=== PATIENT | female | born 1940 | race Caucasian/White ===

== ENCOUNTER 2022-05-19 10:36 | Emergency (ER) | payer MEDICARE, BC ==
[~2022-05-19] VITALS: Ht 167.6 cm; Wt 57.0 kg
[2022-05-19 10:57] LABS: BASOPHILS # (AUTO) 0.1 X10'3 (0-0.2); BASOPHILS % (AUTO) 1.3 % (0-1); EOSINOPHILS % (AUTO) 0.7 % (0-6); HEMATOCRIT 41.3 % (35.0-45.0); HEMOGLOBIN 13.8 g/dl (12.0-16.0); LYMPHOCYTES # (AUTO) 0.6 X10'3 (1.1-4.8); LYMPHOCYTES % (AUTO) 13.6 % (21-51); MEAN CORPUSCULAR HEMOGLOBIN 31.6 PG (27.0-31.0); MEAN CORPUSCULAR HGB CONC 33.3 g/dL (33.0-36.5); MEAN CORPUSCULAR VOLUME 94.8 FL (78-98); MEAN PLATELET VOLUME 8.5 FL (7.4-10.4); MONOCYTES # (AUTO) 0.5 X10'3 (0-0.9); MONOCYTES % (AUTO) 10.6 % (2-12); NEUTROPHILS # (AUTO) 3.4 X10'3 (1.8-7.7); NEUTROPHILS % (AUTO) 73.8 % (42-75); PLATELET COUNT 314 X10'3 (140-440); RED BLOOD COUNT 4.36 X10'6 (4.20-5.60); RED CELL DISTRIBUTION WIDTH 13.3 % (11.5-14.5); WHITE BLOOD COUNT 4.5 X10'3 (4.5-11.0)
[2022-05-19 11:16] LABS: ALANINE AMINOTRANSFERASE 17 U/L (12-78); ALBUMIN/GLOBULIN RATIO 1.3 (1.1-1.5); ALKALINE PHOSPHATASE 58 IU/L (46-116); ANION GAP 8 (8-16); ASPARTATE AMINO TRANSFERASE 14 U/L (10-37); BILIRUBIN,TOTAL 1.7 MG/DL (0.1-1.0); BLOOD UREA NITROGEN 13 MG/DL (7-18); BUN/CREATININE RATIO 18.6 (10.0-20.0); CALCIUM 9.4 MG/DL (8.5-10.1); CHLORIDE 104 MMOL/L (99-107); GLUCOSE 116 MG/DL (70-104); MAGNESIUM 2.2 MG/DL (1.5-2.4); POTASSIUM 4.3 MMOL/L (3.5-5.1); SODIUM 138 MMOL/L (135-145); TOTAL CARBON DIOXIDE 26.2 MMOL/L (24-32); TOTAL PROTEIN 7.1 G/DL (6.4-8.2); eGFR 81 ML/MIN
[2022-05-19 11:56] VITALS: BP 143/77
--- NOTE | 2022-05-19 14:13 | NUR ---
At 1400, Pt was to be triaged after returning w/ [facility] from elopement, however, pt began to start kicking and screaming once the cuff started pumping up. At 1405, Ativan 2mg IM given in R glut. Per provider request, Haldol and Nardal held at this time. At 1410, MYLES Childress assessed pt face to face, and determined restraints were necessary. Pt continuing to scream, but not kicking at this time.
== END 2022-05-19 14:13 | disposition home or self-care (01) ==
LOC: ER 10:36
DX: R55 Syncope and collapse (principal)
CPT/HCPCS: 36415; 71045; 80053; 83735; 83880; 84484; 85025; 93005; 99285

== ENCOUNTER 2022-09-14 09:01 | Inpatient (IN) | payer BC, MEDICARE ==
[~2022-09-14] VITALS: Ht 167.6 cm; Wt 56.8 kg
[2022-09-14 09:48] LABS: BASOPHILS % (AUTO) 0.6 % (0-1); EOSINOPHILS # (AUTO) 0.1 X10'3 (0-0.9); EOSINOPHILS % (AUTO) 2.3 % (0-6); HEMATOCRIT 42.5 % (35.0-45.0); HEMOGLOBIN 14.4 g/dl (12.0-16.0); LYMPHOCYTES # (AUTO) 0.4 X10'3 (1.1-4.8); MEAN CORPUSCULAR HEMOGLOBIN 31.4 PG (27.0-31.0); MEAN CORPUSCULAR HGB CONC 33.8 g/dL (33.0-36.5); MEAN CORPUSCULAR VOLUME 93.1 FL (78-98); MEAN PLATELET VOLUME 8.3 FL (7.4-10.4); MONOCYTES # (AUTO) 0.4 X10'3 (0-0.9); MONOCYTES % (AUTO) 9.9 % (2-12); NEUTROPHILS # (AUTO) 3.4 X10'3 (1.8-7.7); NEUTROPHILS % (AUTO) 77.2 % (42-75); PLATELET COUNT 192 X10'3 (140-440); RED BLOOD COUNT 4.57 X10'6 (4.20-5.60); RED CELL DISTRIBUTION WIDTH 13.4 % (11.5-14.5); WHITE BLOOD COUNT 4.5 X10'3 (4.5-11.0)
[2022-09-14 10:06] LABS: ALANINE AMINOTRANSFERASE 27 U/L (12-78); ALBUMIN 3.7 G/DL (3.4-5.0); ALKALINE PHOSPHATASE 75 IU/L (46-116); ANION GAP 9 (8-16); ASPARTATE AMINO TRANSFERASE 18 U/L (10-37); BILIRUBIN,TOTAL 0.5 MG/DL (0.1-1.0); BLOOD UREA NITROGEN 12 MG/DL (7-18); CALCIUM 8.9 MG/DL (8.5-10.1); CHLORIDE 95 MMOL/L (99-107); GLUCOSE 137 MG/DL (70-104); LIPASE 68 U/L (73-393); POTASSIUM 3.9 MMOL/L (3.5-5.1); SODIUM 130 MMOL/L (135-145); TOTAL CARBON DIOXIDE 26.3 MMOL/L (24-32); TOTAL PROTEIN 7.4 G/DL (6.4-8.2); eGFR 69 ML/MIN
[2022-09-14] MEDS ORDERED: normal saline 1000ml 1,000 ML IV ONE (10:20)
[2022-09-14 10:35] LABS: CLARITY,URINE SLIGHTLY CLOUDY (Clear); COLOR,URINE YELLOW (Yellow); GLUCOSE, URINE NEGATIVE (Neg); KETONES,URINE 15 mg/dl (Neg); LEUKOCYTE ESTERASE ,URINE LARGE (Neg); NITRITES, URINE NEGATIVE (Neg); OCCULT BLOOD,URINE MODERATE (Neg); PROTEIN,URINE 30 mg/dl (Neg); UROBILINOGEN,URINE 0.2 E.U/dL (0.2-1.0)
[2022-09-14 10:52] LABS: UA COLLECTION TYPE CLN CATCH MIDSTREAM
[2022-09-14 10:55] LABS: BACTERIA,URINE 4+ /HPF (Neg); MUCUS STRANDS FEW /LPF (Neg); SQUAMOUS EPITHELIAL CELL,UR MANY /LPF (FEW); WBC,URINE 50-100 /HPF (0-4)
[2022-09-14] MEDS ORDERED: CefTRIAXone/D5W-Rocephin 1gm 50 ML IV ONE (11:10)
[2022-09-14] MEDS ORDERED: HYDROcodone/acetaminophen 5mg/325mg tablet PO ONE (11:30)
[2022-09-14] MEDS ORDERED: mag hydrox/Alum hydrox/simeth 30ml oral suspension PO PRN (12:05)
[2022-09-14] MEDS ORDERED: potassium Cl 40MEQ/1/2NS 520ml 520 ML IV PRN (12:05)
[2022-09-14] MEDS ORDERED: potassium Cl 20 mEq SR tablet PO PRN (12:05)
[2022-09-14] MEDS ORDERED: magnesium 4gm in 100ml NS 100 ML IV PRN (12:05)
[2022-09-14] MEDS ORDERED: magnesium 2GM in 50ml NS 50 ML IV PRN (12:05)
[2022-09-14] MEDS ORDERED: ondansetron/PF 4mg/2ml inj IV PRN (12:05)
[2022-09-14 12:32] LABS: CLARITY,URINE CLEAR (Clear); COLOR,URINE YELLOW (Yellow); GLUCOSE, URINE NEGATIVE (Neg); KETONES,URINE 40 mg/dl (Neg); LEUKOCYTE ESTERASE ,URINE NEGATIVE (Neg); NITRITES, URINE NEGATIVE (Neg); OCCULT BLOOD,URINE MODERATE (Neg); PH,URINE 7.5 (4.8-8.0); PROTEIN,URINE TRACE mg/dl (Neg); UROBILINOGEN,URINE 0.2 E.U/dL (0.2-1.0)
[2022-09-14 12:39] LABS: UA COLLECTION TYPE STRAIGHT CATH
[2022-09-14 12:40] LABS: BACTERIA,URINE NONE SEEN /HPF (Neg); MUCUS STRANDS FEW /LPF (Neg); WBC,URINE 0-4 /HPF (0-4)
[2022-09-14 12:41] LABS: SQUAMOUS EPITHELIAL CELL,UR MODERATE /LPF (FEW)
[2022-09-14] MEDS: normal saline 1000ml 1,000 ML IV SCH (12:52)
[2022-09-14] MEDS ORDERED: LORazepam 2 mg/ml vial IV PRN (14:20)
[2022-09-14] MEDS ORDERED: haloperidol lactate 5mg/ml inj IM PRN (14:20)
[2022-09-14] MEDS ORDERED: haloperidol 5mg tablet PO PRN (14:20)
[2022-09-14] MEDS: thiamine 100mg tablet PO SCH (14:39)
[2022-09-14] MEDS: folic acid 1mg tablet PO SCH (14:39)
--- NOTE | 2022-09-14 15:09 | NUR ---
Patient in room ED 8. I have received report from Shadow in the ED and had the opportunity to ask questions and assume patient care.
[2022-09-14 15:21] VITALS: BP 98/56; PULSE 77; RESP 16; TEMP 99; O2SAT 96
[2022-09-14 15:43] VITALS: RESP 16; O2SAT 94
[2022-09-14 18:00] VITALS: BP 135/72; PULSE 81; RESP 16; TEMP 101.2; O2SAT 99
--- NOTE | 2022-09-14 18:13 | NUR ---
Problems reprioritized. Patient report given, questions answered & plan of care reviewed with
[2022-09-14] MEDS ORDERED: PROG100C11 PO (19:25)
[2022-09-14] MEDS ORDERED: FLEC100T35 PO (19:25)
[2022-09-14] MEDS ORDERED: CICL6.6S22 (19:25)
[2022-09-14] MEDS ORDERED: NARA2.5T2 PO (19:25)
[2022-09-14] MEDS ORDERED: FLEC50TA28 PO (19:25)
[2022-09-14 20:00] VITALS: RESP 18; O2SAT 95
[2022-09-14] MEDS: docusate sod 100mg capsule PO SCH (20:00)
[2022-09-14] MEDS: K and/or MAG REPLACEMENT MC SCH (20:00)
[2022-09-14] MEDS: acetaminophen 325mg tablet PO PRN (20:14)
[2022-09-14] MEDS: metroNIDAZOLE 500mg tablet PO SCH (20:15)
[2022-09-14] MEDS: enoxaparin 40mg/0.4ml syringe SQ SCH (20:16)
[2022-09-14 22:00] VITALS: BP 82/46; PULSE 69; RESP 18; TEMP 101.4; O2SAT 95
[2022-09-14 23:56] VITALS: BP 101/58; PULSE 68; TEMP 99
--- NOTE | 2022-09-15 03:05 | NUR ---
MESSAGE: 4009C MERARI NUR IS HAVING MUSCLE SPASM. CAN SHE HAVE SOMETHING FOR THAT PAIN? THANK YOU. [id number] BRODY
[2022-09-15 03:35] LABS: ALANINE AMINOTRANSFERASE 20 U/L (12-78); ALBUMIN 3.1 G/DL (3.4-5.0); ALBUMIN/GLOBULIN RATIO 0.9 (1.1-1.5); ALKALINE PHOSPHATASE 67 IU/L (46-116); ANION GAP 11 (8-16); ASPARTATE AMINO TRANSFERASE 19 U/L (10-37); BILIRUBIN,TOTAL 0.5 MG/DL (0.1-1.0); BLOOD UREA NITROGEN 11 MG/DL (7-18); BUN/CREATININE RATIO 17.2 (10.0-20.0); CALCIUM 7.7 MG/DL (8.5-10.1); CHLORIDE 98 MMOL/L (99-107); CREATININE 0.64 MG/DL (0.40-0.90); GLUCOSE 123 MG/DL (70-104); LIPASE < 50 U/L (73-393); MAGNESIUM 2.2 MG/DL (1.5-2.4); PHOSPHORUS 2.8 MG/DL (2.3-4.5); POTASSIUM 3.7 MMOL/L (3.5-5.1); SODIUM 130 MMOL/L (135-145); TOTAL CARBON DIOXIDE 20.9 MMOL/L (24-32); TOTAL PROTEIN 6.5 G/DL (6.4-8.2); eGFR 89 ML/MIN
[2022-09-15] MEDS: cyclobenzaprine 10mg tablet PO PRN ×2 (03:39→11:21)
[2022-09-15] MEDS: normal saline 1000ml 1,000 ML IV SCH ×2 (03:41→16:50)
[2022-09-15 03:46] LABS: BASOPHILS # (AUTO) 0.1 X10'3 (0-0.2); BASOPHILS % (AUTO) 0.9 % (0-1); EOSINOPHILS % (AUTO) 0.3 % (0-6); HEMATOCRIT 38.3 % (35.0-45.0); LYMPHOCYTES # (AUTO) 0.8 X10'3 (1.1-4.8); LYMPHOCYTES % (AUTO) 13.6 % (21-51); MEAN CORPUSCULAR HEMOGLOBIN 31.7 PG (27.0-31.0); MEAN CORPUSCULAR HGB CONC 34.1 g/dL (33.0-36.5); MEAN PLATELET VOLUME 8.5 FL (7.4-10.4); MONOCYTES # (AUTO) 0.8 X10'3 (0-0.9); MONOCYTES % (AUTO) 13.5 % (2-12); NEUTROPHILS # (AUTO) 4.2 X10'3 (1.8-7.7); NEUTROPHILS % (AUTO) 71.7 % (42-75); PLATELET COUNT 142 X10'3 (140-440); RED BLOOD COUNT 4.12 X10'6 (4.20-5.60); RED CELL DISTRIBUTION WIDTH 13.2 % (11.5-14.5); WHITE BLOOD COUNT 5.9 X10'3 (4.5-11.0)
[2022-09-15] MEDS: acetaminophen 325mg tablet PO PRN (05:10)
[2022-09-15 06:00] VITALS: BP 135/51; PULSE 63; RESP 18; TEMP 102.3; O2SAT 96
--- NOTE | 2022-09-15 06:15 | NUR ---
RECEIVED REPORT FROM DG SKINNER
--- NOTE | 2022-09-15 06:34 | NUR ---
Problems reprioritized. Patient report given, questions answered & plan of care reviewed with DG COTO.
[2022-09-15] MEDS: K and/or MAG REPLACEMENT MC SCH ×2 (07:39→20:00)
[2022-09-15] MEDS ORDERED: CefTRIAXone/D5W-Rocephin 1gm 50 ML IV SCH (08:00)
[2022-09-15] MEDS: docusate sod 100mg capsule PO SCH ×2 (08:02→20:16)
[2022-09-15] MEDS: metroNIDAZOLE 500mg tablet PO SCH ×2 (08:02→20:16)
[2022-09-15] MEDS: multivitamins, therapeutics tablet PO SCH (08:03)
[2022-09-15] MEDS: folic acid 1mg tablet PO SCH (08:03)
[2022-09-15] MEDS: thiamine 100mg tablet PO SCH (08:04)
[2022-09-15 10:00] VITALS: BP 78/58; PULSE 81; RESP 16; TEMP 97.9; O2SAT 97
[2022-09-15] MEDS: flecainide 50mg tablet PO SCH ×2 (10:24→20:17)
[2022-09-15] MEDS: CefTRIAXone/D5W-Rocephin 1gm 50 ML IV SCH (10:56)
[2022-09-15] MEDS: LORazepam 1 MG tablet PO PRN (11:00)
[2022-09-15] MEDS ORDERED: iohexol 300mg/ml 100ml inj. ONE (13:39)
--- NOTE | 2022-09-15 14:22 | NUR ---
it was explained to patient that the eeg was to rule out seizures/syncopal episodes so we are able to help/treat patient, pt refuses to have eeg, patient states that 'i can see my outpatient doctor about my symptoms and that is why i do not need an eeg' continue to educate and to monitor
[2022-09-15 18:00] VITALS: BP 131/76; PULSE 83; RESP 12; TEMP 100.5; O2SAT 100
--- NOTE | 2022-09-15 18:11 | NUR ---
gave report katarina beyer
[2022-09-15 20:00] VITALS: RESP 12; O2SAT 100
[2022-09-15] MEDS: progesterone, micronized 100mg capsule PO SCH (20:17)
[2022-09-15] MEDS: enoxaparin 40mg/0.4ml syringe SQ SCH (20:18)
[2022-09-15 22:00] VITALS: BP 120/58; PULSE 72; RESP 18; TEMP 99; O2SAT 94
[2022-09-16] VITALS (7 sets, daily range): BP systolic 94–124; BP diastolic 49–74; PULSE 59–85; RESP 16–19; TEMP 98.4–100.1; O2SAT 95–100
[2022-09-16] MEDS: normal saline 1000ml 1,000 ML IV SCH ×2 (04:00→17:54)
--- NOTE | 2022-09-16 06:00 | NUR ---
Patient in room ORTHO 4009. I have received report from DG Snyder and had the opportunity to ask questions and assume patient care.
--- NOTE | 2022-09-16 06:26 | NUR ---
Problems reprioritized. Patient report given, questions answered & plan of care reviewed with DG COTO.
[2022-09-16 06:39] LABS: BASOPHILS % (AUTO) 0.5 % (0-1); EOSINOPHILS % (AUTO) 0.4 % (0-6); HEMATOCRIT 33.2 % (35.0-45.0); HEMOGLOBIN 11.3 g/dl (12.0-16.0); LYMPHOCYTES # (AUTO) 0.6 X10'3 (1.1-4.8); LYMPHOCYTES % (AUTO) 7.5 % (21-51); MEAN CORPUSCULAR HEMOGLOBIN 31.3 PG (27.0-31.0); MEAN CORPUSCULAR HGB CONC 33.9 g/dL (33.0-36.5); MEAN CORPUSCULAR VOLUME 92.1 FL (78-98); MEAN PLATELET VOLUME 8.1 FL (7.4-10.4); MONOCYTES # (AUTO) 0.7 X10'3 (0-0.9); MONOCYTES % (AUTO) 8.4 % (2-12); NEUTROPHILS % (AUTO) 83.2 % (42-75); PLATELET COUNT 181 X10'3 (140-440); RED BLOOD COUNT 3.61 X10'6 (4.20-5.60); WHITE BLOOD COUNT 8.4 X10'3 (4.5-11.0)
[2022-09-16 06:56] LABS: ALANINE AMINOTRANSFERASE 20 U/L (12-78); ALBUMIN 2.6 G/DL (3.4-5.0); ALBUMIN/GLOBULIN RATIO 0.8 (1.1-1.5); ALKALINE PHOSPHATASE 65 IU/L (46-116); ANION GAP 8 (8-16); ASPARTATE AMINO TRANSFERASE 17 U/L (10-37); BILIRUBIN,TOTAL 0.7 MG/DL (0.1-1.0); BLOOD UREA NITROGEN 10 MG/DL (7-18); BUN/CREATININE RATIO 17.5 (10.0-20.0); CALCIUM 6.9 MG/DL (8.5-10.1); CHLORIDE 95 MMOL/L (99-107); CREATININE 0.57 MG/DL (0.40-0.90); GLUCOSE 105 MG/DL (70-104); LIPASE < 50 U/L (73-393); SODIUM 127 MMOL/L (135-145); TOTAL CARBON DIOXIDE 24.5 MMOL/L (24-32); TOTAL PROTEIN 5.7 G/DL (6.4-8.2); eGFR > 90 ML/MIN
[2022-09-16] MEDS ORDERED: flecainide 50mg tablet PO SCH (08:00)
[2022-09-16] MEDS ORDERED: non-formulary drug (Flecainide Acetate 1 TAB) PO SCH (08:00)
[2022-09-16] MEDS: K and/or MAG REPLACEMENT MC SCH ×2 (08:00→20:00)
[2022-09-16] MEDS ORDERED: SUMAtriptan 25 MG tablet PO PRN (08:00)
[2022-09-16] MEDS: folic acid 1mg tablet PO SCH (08:18)
[2022-09-16] MEDS: metroNIDAZOLE 500mg tablet PO SCH ×2 (08:18→19:14)
[2022-09-16] MEDS: docusate sod 100mg capsule PO SCH ×2 (08:19→19:14)
[2022-09-16] MEDS: thiamine 100mg tablet PO SCH (08:19)
[2022-09-16] MEDS: flecainide 50mg tablet PO SCH ×2 (08:19→19:13)
[2022-09-16] MEDS: multivitamins, therapeutics tablet PO SCH (08:19)
[2022-09-16] MEDS: potassium Cl 20 mEq SR tablet PO PRN ×3 (08:20→19:14)
[2022-09-16] MEDS: CefTRIAXone/D5W-Rocephin 1gm 50 ML IV SCH (08:24)
--- NOTE | 2022-09-16 11:33 | NUR ---
Patient in room ORTHO 4009. I have received report from DG Snyder and had the opportunity to ask questions and assume patient care.
[2022-09-16] MEDS ORDERED: ondansetron 4mg rapidly disintigrating tab PO PRN (11:50)
[2022-09-16] MEDS: lactose-reduced food (Ensure Enlive) - 237ml bottle PO SCH ×2 (13:00→18:00)
--- NOTE | 2022-09-16 14:30 | NUR ---
Earlier today I spoke with the hospitalist and the resident about changing the patients pain medication because the pt told me that the pain medication was not decreasing his pain level. The MD and the resident said, "I will look into it". No new orders at this time, continue monitor pt and CADD.
[2022-09-16] MEDS: cyclobenzaprine 10mg tablet PO PRN (14:45)
[2022-09-16] MEDS: LORazepam 1 MG tablet PO PRN (19:11)
[2022-09-16] MEDS: enoxaparin 40mg/0.4ml syringe SQ SCH (19:15)
[2022-09-16] MEDS: progesterone, micronized 100mg capsule PO SCH (19:29)
[2022-09-17] MEDS: normal saline 1000ml 1,000 ML IV SCH (05:31)
[2022-09-17 06:00] VITALS: BP 119/65; PULSE 84; RESP 16; TEMP 99.8; O2SAT 98
--- NOTE | 2022-09-17 06:15 | NUR ---
Patient in room ORTHO 4009. I have received report from Hoda and had the opportunity to ask questions and assume patient care.
--- NOTE | 2022-09-17 06:43 | NUR ---
Problems reprioritized. Patient report given, questions answered & plan of care reviewed with katarina Bobby.
[2022-09-17 06:46] LABS: BASOPHILS % (AUTO) 0.3 % (0-1); EOSINOPHILS # (AUTO) 0.1 X10'3 (0-0.9); EOSINOPHILS % (AUTO) 0.8 % (0-6); HEMATOCRIT 31.5 % (35.0-45.0); HEMOGLOBIN 10.7 g/dl (12.0-16.0); LYMPHOCYTES # (AUTO) 0.5 X10'3 (1.1-4.8); LYMPHOCYTES % (AUTO) 5.9 % (21-51); MEAN CORPUSCULAR HEMOGLOBIN 31.1 PG (27.0-31.0); MEAN CORPUSCULAR HGB CONC 33.8 g/dL (33.0-36.5); MEAN PLATELET VOLUME 8.2 FL (7.4-10.4); MONOCYTES # (AUTO) 0.5 X10'3 (0-0.9); MONOCYTES % (AUTO) 6.2 % (2-12); NEUTROPHILS # (AUTO) 6.7 X10'3 (1.8-7.7); NEUTROPHILS % (AUTO) 86.8 % (42-75); PLATELET COUNT 227 X10'3 (140-440); RED BLOOD COUNT 3.43 X10'6 (4.20-5.60); RED CELL DISTRIBUTION WIDTH 13.2 % (11.5-14.5); WHITE BLOOD COUNT 7.8 X10'3 (4.5-11.0)
[2022-09-17 07:00] LABS: ALANINE AMINOTRANSFERASE 19 U/L (12-78); ALBUMIN 2.4 G/DL (3.4-5.0); ALBUMIN/GLOBULIN RATIO 0.8 (1.1-1.5); ALKALINE PHOSPHATASE 70 IU/L (46-116); ANION GAP 8 (8-16); ASPARTATE AMINO TRANSFERASE 13 U/L (10-37); BILIRUBIN,TOTAL 0.9 MG/DL (0.1-1.0); BLOOD UREA NITROGEN 8 MG/DL (7-18); BUN/CREATININE RATIO 13.1 (10.0-20.0); CALCIUM 7.4 MG/DL (8.5-10.1); CHLORIDE 95 MMOL/L (99-107); CREATININE 0.61 MG/DL (0.40-0.90); GLUCOSE 133 MG/DL (70-104); LIPASE 59 U/L (73-393); MAGNESIUM 1.8 MG/DL (1.5-2.4); POTASSIUM 3.8 MMOL/L (3.5-5.1); SODIUM 127 MMOL/L (135-145); TOTAL CARBON DIOXIDE 23.7 MMOL/L (24-32); TOTAL PROTEIN 5.5 G/DL (6.4-8.2); eGFR > 90 ML/MIN
[2022-09-17 07:05] LABS: PHOSPHORUS 1.1 MG/DL (2.3-4.5)
--- NOTE | 2022-09-17 07:13 | NUR ---
Re: Aroldo in 4009C phos of 1.1 Diamante
[2022-09-17] MEDS: K and/or MAG REPLACEMENT MC SCH ×2 (07:31→18:51)
[2022-09-17] MEDS: docusate sod 100mg capsule PO SCH ×2 (07:39→20:00)
[2022-09-17 07:40] VITALS: RESP 16; O2SAT 98
[2022-09-17] MEDS: metroNIDAZOLE 500mg tablet PO SCH ×2 (07:40→20:21)
[2022-09-17] MEDS: thiamine 100mg tablet PO SCH (07:40)
[2022-09-17] MEDS: flecainide 50mg tablet PO SCH ×2 (07:40→20:21)
[2022-09-17] MEDS: multivitamins, therapeutics tablet PO SCH (07:40)
[2022-09-17] MEDS: folic acid 1mg tablet PO SCH (07:40)
[2022-09-17] MEDS: lactose-reduced food (Ensure Enlive) - 237ml bottle PO SCH ×3 (08:00→18:03)
[2022-09-17] MEDS: Neutra Phos packet PO SCH ×3 (08:52→20:21)
[2022-09-17 10:00] VITALS: BP 103/61; PULSE 80; RESP 16; TEMP 99.4; O2SAT 96
[2022-09-17] MEDS: levoFLOXACIN 750MG TABLET PO SCH (11:18)
[2022-09-17 18:00] VITALS: BP 119/69; PULSE 85; RESP 14; TEMP 98.6; O2SAT 96
--- NOTE | 2022-09-17 18:13 | NUR ---
Problems reprioritized. Patient report given, questions answered & plan of care reviewed with
--- NOTE | 2022-09-17 18:30 | NUR ---
Patient in room ORTHO 4009. I have received report from Diamante CONTE and had the opportunity to ask questions and assume patient care.
--- NOTE | 2022-09-17 19:00 | NUR ---
Bladder scanned pt for a residual of 826. Put in a straight cath and urine output was 950ml. Will continue to monitor
[2022-09-17 20:00] VITALS: RESP 20; O2SAT 93
[2022-09-17] MEDS: progesterone, micronized 100mg capsule PO SCH (20:20)
[2022-09-17] MEDS: enoxaparin 40mg/0.4ml syringe SQ SCH (20:21)
[2022-09-17 22:00] VITALS: BP 110/69; PULSE 77; RESP 20; TEMP 99.4; O2SAT 93
[2022-09-17] MEDS: cyclobenzaprine 10mg tablet PO PRN (23:10)
[2022-09-18] VITALS (8 sets, daily range): BP systolic 92–116; BP diastolic 56–80; PULSE 60–91; RESP 16–17; TEMP 98–98.7; O2SAT 93–98
--- NOTE | 2022-09-18 02:42 | NUR ---
4009C Arline Kendrick EXT 5199 Pt has a headache and wants Tylenol. Can the Tylenol order she has for fever be changed to state for Fever or pain? Thanks ,Mallika Addendum: 09/18/22 at 0246 by Adriane Lara RN Dr paul advised to change order to include pain
[2022-09-18] MEDS: acetaminophen 325mg tablet PO PRN (02:51)
--- NOTE | 2022-09-18 05:10 | NUR ---
4009C Arline Kendrick Ext 5199 Pt isretaining urine I scanned her with residual of 826 at beginning of shift and straight cathed with 950 output. I bladder scanned again. she is retaining 652ml. Can I get an order to straight cath her? Mallika Addendum: 09/18/22 at 0548 by Adriane Lara RN Dr Starr called and advised to straight cath the patient and monitor for any urine retention
--- NOTE | 2022-09-18 05:47 | NUR ---
Pt voided less than 100ml during shift. Bladder scanned with a residual volume of 621ml. Straighted cathed with a total output of 850ml. Will continue to monitor
[2022-09-18 07:04] LABS: ALANINE AMINOTRANSFERASE 21 U/L (12-78); ALBUMIN 2.4 G/DL (3.4-5.0); ALKALINE PHOSPHATASE 83 IU/L (46-116); ANION GAP 10 (8-16); ASPARTATE AMINO TRANSFERASE 17 U/L (10-37); BLOOD UREA NITROGEN 8 MG/DL (7-18); BUN/CREATININE RATIO 14.8 (10.0-20.0); CALCIUM 7.3 MG/DL (8.5-10.1); CHLORIDE 96 MMOL/L (99-107); CREATININE 0.54 MG/DL (0.40-0.90); GLUCOSE 113 MG/DL (70-104); LIPASE 58 U/L (73-393); MAGNESIUM 1.9 MG/DL (1.5-2.4); PHOSPHORUS 1.9 MG/DL (2.3-4.5); POTASSIUM 3.3 MMOL/L (3.5-5.1); SODIUM 127 MMOL/L (135-145); TOTAL CARBON DIOXIDE 21.4 MMOL/L (24-32); eGFR > 90 ML/MIN
[2022-09-18 07:15] LABS: BASOPHILS # (AUTO) 0.1 X10'3 (0-0.2); BASOPHILS % (AUTO) 0.7 % (0-1); EOSINOPHILS # (AUTO) 0.1 X10'3 (0-0.9); EOSINOPHILS % (AUTO) 1.9 % (0-6); HEMATOCRIT 34.9 % (35.0-45.0); HEMOGLOBIN 11.8 g/dl (12.0-16.0); LYMPHOCYTES # (AUTO) 0.5 X10'3 (1.1-4.8); LYMPHOCYTES % (AUTO) 6.1 % (21-51); MEAN CORPUSCULAR HEMOGLOBIN 31.7 PG (27.0-31.0); MEAN CORPUSCULAR HGB CONC 33.8 g/dL (33.0-36.5); MEAN CORPUSCULAR VOLUME 93.6 FL (78-98); MEAN PLATELET VOLUME 8.5 FL (7.4-10.4); MONOCYTES # (AUTO) 0.7 X10'3 (0-0.9); MONOCYTES % (AUTO) 9.5 % (2-12); NEUTROPHILS # (AUTO) 6.2 X10'3 (1.8-7.7); NEUTROPHILS % (AUTO) 81.8 % (42-75); PLATELET COUNT 276 X10'3 (140-440); RED BLOOD COUNT 3.73 X10'6 (4.20-5.60); RED CELL DISTRIBUTION WIDTH 13.5 % (11.5-14.5); WHITE BLOOD COUNT 7.6 X10'3 (4.5-11.0)
[2022-09-18 07:19] LABS: ALBUMIN/GLOBULIN RATIO 0.7 (1.1-1.5); BILIRUBIN,TOTAL 0.9 MG/DL (0.1-1.0); TOTAL PROTEIN 5.9 G/DL (6.4-8.2)
[2022-09-18] MEDS: docusate sod 100mg capsule PO SCH ×2 (08:00→20:24)
[2022-09-18] MEDS: K and/or MAG REPLACEMENT MC SCH ×3 (08:25→20:00)
[2022-09-18] MEDS: lactose-reduced food (Ensure Enlive) - 237ml bottle PO SCH ×3 (08:26→18:00)
[2022-09-18] MEDS: Neutra Phos packet PO SCH ×3 (08:27→20:22)
[2022-09-18] MEDS: flecainide 50mg tablet PO SCH ×2 (08:27→20:24)
[2022-09-18] MEDS: folic acid 1mg tablet PO SCH (08:28)
[2022-09-18] MEDS: multivitamins, therapeutics tablet PO SCH (08:28)
[2022-09-18] MEDS: thiamine 100mg tablet PO SCH (08:28)
[2022-09-18] MEDS: metroNIDAZOLE 500mg tablet PO SCH ×2 (08:28→20:24)
--- NOTE | 2022-09-18 08:35 | NUR ---
Noted pt on heart healthy diet admit DX daily etoh and hyponatremia on IV NS until yesterday serum Na up to 130mmol/L currently from 127mmol/L on admit. Pt only cardiac hx afib w/ low to normal bp this LOS; RD d/w RN recommends liberalizing to regular diet since more appropriate if MD agreeable. Rec: 1. liberalize to regular diet; only cardiac hx afib, low to normal bp this LOS DX hyponatremia on IV NS until 09/17 Addendum: 09/18/22 at [address] Amended: Links added.
--- NOTE | 2022-09-18 09:30 | NUR ---
FC placed. Patient tolerated well. 850CC output on placement.
[2022-09-18] MEDS ORDERED: potassium Cl 20 mEq SR tablet PO PRN ×2 (10:55)
[2022-09-18] MEDS ORDERED: magnesium 2GM in 50ml NS 50 ML IV PRN (10:55)
[2022-09-18] MEDS ORDERED: potassium Cl 40MEQ/1/2NS 520ml 520 ML IV PRN (10:55)
[2022-09-18] MEDS ORDERED: magnesium Cl slow-release 64mg tablet PO PRN (10:55)
[2022-09-18] MEDS ORDERED: magnesium 4gm in 100ml NS 100 ML IV PRN (10:55)
[2022-09-18] MEDS: levoFLOXACIN 750MG TABLET PO SCH (11:28)
[2022-09-18] MEDS: POTASSIUM BICARB 20meq eff tab 20 MEQ TABLET.EFF PO PRN ×3 (11:29→20:22)
--- NOTE | 2022-09-18 18:30 | NUR ---
Patient in room ORTHO 4009. I have received report from Dinora CONTE and had the opportunity to ask questions and assume patient care.
[2022-09-18] MEDS: progesterone, micronized 100mg capsule PO SCH (20:23)
[2022-09-18] MEDS: enoxaparin 40mg/0.4ml syringe SQ SCH (20:24)
[2022-09-18] MEDS: cyclobenzaprine 10mg tablet PO PRN (20:28)
[2022-09-19 06:00] VITALS: BP 113/71; PULSE 87; RESP 17; TEMP 97.9; O2SAT 94
--- NOTE | 2022-09-19 06:14 | NUR ---
Problems reprioritized. Patient report given, questions answered & plan of care reviewed with Yahaira ROBLEDO.
[2022-09-19 06:21] LABS: BASOPHILS % (AUTO) 0.2 % (0-1); EOSINOPHILS # (AUTO) 0.2 X10'3 (0-0.9); EOSINOPHILS % (AUTO) 2.5 % (0-6); HEMATOCRIT 32.4 % (35.0-45.0); HEMOGLOBIN 11.1 g/dl (12.0-16.0); LYMPHOCYTES # (AUTO) 0.3 X10'3 (1.1-4.8); LYMPHOCYTES % (AUTO) 4.5 % (21-51); MEAN CORPUSCULAR HEMOGLOBIN 31.7 PG (27.0-31.0); MEAN CORPUSCULAR HGB CONC 34.2 g/dL (33.0-36.5); MEAN CORPUSCULAR VOLUME 92.7 FL (78-98); MEAN PLATELET VOLUME 8.3 FL (7.4-10.4); MONOCYTES # (AUTO) 0.8 X10'3 (0-0.9); MONOCYTES % (AUTO) 10.9 % (2-12); NEUTROPHILS # (AUTO) 5.8 X10'3 (1.8-7.7); NEUTROPHILS % (AUTO) 81.9 % (42-75); PLATELET COUNT 346 X10'3 (140-440); RED BLOOD COUNT 3.49 X10'6 (4.20-5.60); RED CELL DISTRIBUTION WIDTH 13.3 % (11.5-14.5); WHITE BLOOD COUNT 7.1 X10'3 (4.5-11.0)
--- NOTE | 2022-09-19 06:25 | NUR ---
Patient in room ORTHO 4009. I have received report from Mallika CONTE and had the opportunity to ask questions and assume patient care.
[2022-09-19 06:27] LABS: ALANINE AMINOTRANSFERASE 21 U/L (12-78); ALBUMIN 2.3 G/DL (3.4-5.0); ALBUMIN/GLOBULIN RATIO 0.7 (1.1-1.5); ALKALINE PHOSPHATASE 90 IU/L (46-116); ANION GAP 5 (8-16); ASPARTATE AMINO TRANSFERASE 20 U/L (10-37); BILIRUBIN,TOTAL 0.7 MG/DL (0.1-1.0); BLOOD UREA NITROGEN 11 MG/DL (7-18); BUN/CREATININE RATIO 18.3 (10.0-20.0); CALCIUM 7.8 MG/DL (8.5-10.1); CHLORIDE 95 MMOL/L (99-107); GLUCOSE 128 MG/DL (70-104); LIPASE 59 U/L (73-393); MAGNESIUM 1.8 MG/DL (1.5-2.4); POTASSIUM 4.2 MMOL/L (3.5-5.1); SODIUM 126 MMOL/L (135-145); TOTAL CARBON DIOXIDE 25.8 MMOL/L (24-32); TOTAL PROTEIN 5.7 G/DL (6.4-8.2); eGFR > 90 ML/MIN
[2022-09-19 08:00] VITALS: RESP 17; O2SAT 94
[2022-09-19] MEDS: K and/or MAG REPLACEMENT MC SCH (08:00)
[2022-09-19] MEDS: lactose-reduced food (Ensure Enlive) - 237ml bottle PO SCH ×2 (08:00→13:15)
[2022-09-19] MEDS: docusate sod 100mg capsule PO SCH (08:00)
[2022-09-19] MEDS: flecainide 50mg tablet PO SCH (08:27)
[2022-09-19] MEDS: folic acid 1mg tablet PO SCH (08:27)
[2022-09-19] MEDS: metroNIDAZOLE 500mg tablet PO SCH (08:27)
[2022-09-19] MEDS: thiamine 100mg tablet PO SCH (08:27)
[2022-09-19] MEDS: multivitamins, therapeutics tablet PO SCH (08:27)
[2022-09-19] MEDS: Neutra Phos packet PO SCH ×2 (08:28→13:19)
[2022-09-19] MEDS ORDERED: traMADol 50MG tablet PO PRN (11:45)
[2022-09-19] MEDS: levoFLOXACIN 750MG TABLET PO SCH (11:52)
--- NOTE | 2022-09-19 12:51 | NUR ---
PLUG STITCHER documentation: I have reviewed and agree with all interventions, assessments performed and documented by Yahaira Hernandez LVN.
[2022-09-19 12:53] VITALS: RESP 16
--- NOTE | 2022-09-19 15:00 | NUR ---
Patient discharged to [facility] today. IV removed by RN. Called report to [facility] and spoke with Jesus. All questions were answered. Patient was alert and appropriate for transfer. Patient was wheeled downstairs by [employer] personnel. Patient was helped into [employer] van and left with Personnel.
== END 2022-09-19 15:00 | DRG 757 ==
LOC: ER 09:02 → OBSVTOIN 12:12 → ED HOLD 12:12 → UNDOADMIN 12:12 → ED HOLD 12:12 → ORTHO 4S 15:18
PROVIDERS: ADMIT Family Medicine; ATTEND Family Medicine
PROC: BW211ZZ Computerized Tomography (CT Scan) of Abdomen and Pelvis using Low Osmolar Contrast (ICD-10-PCS; 2022-09-15)
PROC: 0T9B70Z Drainage of Bladder with Drainage Device, Via Natural or Artificial Opening (ICD-10-PCS; principal; 2022-09-18)
DX: N76.0 Acute vaginitis (principal); I50.33 Acute on chronic diastolic (congestive) heart failure; J18.9 Pneumonia, unspecified organism; E87.1 Hypo-osmolality and hyponatremia; N30.01 Acute cystitis with hematuria; Z20.822 Contact with and (suspected) exposure to COVID-19; I48.0 Paroxysmal atrial fibrillation; R33.9 Retention of urine, unspecified; K80.20 Calculus of gallbladder without cholecystitis without obstruction; I95.9 Hypotension, unspecified; F10.90 Alcohol use, unspecified, uncomplicated; E83.39 Other disorders of phosphorus metabolism; M25.551 Pain in right hip; Z79.899 Other long term (current) drug therapy; Z80.1 Family history of malignant neoplasm of trachea, bronchus and lung; Z87.440 Personal history of urinary (tract) infections; Z90.49 Acquired absence of other specified parts of digestive tract
CPT/HCPCS: 36415; 71045; 74177; 76700; 80053; 80320; 81001; 83605; 83690; 83735; 83880; 84100; 84145; 84484; 85025; 85610; 87040; 87081; 87210; 87811; 93005; 93306; 97110; 97116; 97161; 97530; 99285; A4314; C1758; G0378; J0696; J1650; J3490; J7030; Q9967